=== PATIENT | male | born 1950 | race Caucasian/White ===

== ENCOUNTER 2018-11-06 12:58 | Observation (INO) ==
[2018-11-06 13:28] LABS: Basophils % 0.3 % (0.0-0.8); Eosinophils % 0.3 % (0.00-10.9); Hematocrit 45.2 VOL% (42.0-52.0); Hemoglobin 14.6 GM/DL (14.0-18.0); Immature Granulocytes % 0.3 %; Immature Granulocytes Absolute 0.03 #; Lymphocytes % 11.7 % (21.2-54.2); Mean Corpuscular HGB Conc 32.3 GM/DL (32-36); Mean Corpuscular Volume 95.6 FL (87-102); Monocytes % 6.2 % (1.7-12.7); Neutrophils % 81.2 % (38.7-73.9); Platelet Count 165 T/CUMM (130-400); Red Blood Count 4.73 MC/CUMM (3.8-5.5); Red Cell Distribution Width 12.8 % (9.3-17.3); White Blood Count 8.7 T/CUMM (4-12)
[2018-11-06 13:52] LABS: Albumin 3.9 G/DL (3.4-5.0); Bilirubin,Total 0.4 MG/DL (0.2-1.0); Calcium 9.1 MG/DL (8.5-10.1); Osmolality,Calculated 273.7 MOS/KG (273-304); Total Protein 7.7 G/DL (6.4-8.3)
[2018-11-06] MEDS ORDERED: HYDROmorphone 2 MG/1 ML VIAL IV PRN (16:08)
[2018-11-06] MEDS ORDERED: ONDANSETRON 4 MG/2 ML VIAL IV PRN (16:08)
[2018-11-06] MEDS ORDERED: hydrALAZINE 20 MG/1 ML VIAL IV PRN (16:14)
[2018-11-06] MEDS: LISINOPRIL 20 MG TABLET PO SCH (17:34)
[2018-11-06] MEDS: DEXTROSE 5% NACL 0.45% 1,000 ML IV SCH (17:35)
[2018-11-06] MEDS: PANTOPRAZOLE 40 MG VIAL IV SCH (17:36)
[2018-11-06] MEDS: cefOXitin 2,000 MG in SYRINGE 1 EACH IV SCH ×2 (18:50→23:31)
[2018-11-07] MEDS: DEXTROSE 5% NACL 0.45% 1,000 ML IV SCH ×2 (03:17→09:26)
[2018-11-07] MEDS: cefOXitin 2,000 MG in SYRINGE 1 EACH IV SCH ×2 (04:57→12:00)
[2018-11-07] MEDS ORDERED: INDOCYANINE GREEN 25 MG VIAL IV ONE (06:37)
[2018-11-07] MEDS ORDERED: TISSUE ADHESIVE 1 EACH APPLICATOR TOP ONE (06:37)
[2018-11-07] MEDS ORDERED: cefOXitin 2,000 MG in SYRINGE 1 EACH IV ONE (06:40)
[2018-11-07] MEDS ORDERED: ENOXAPARIN 40 MG/0.4 ML SYRINGE SUBCUT SCH (07:00)
[2018-11-07] MEDS ORDERED: PROPOFOL 200 MG/20 ML VIAL IV ONE (08:39)
[2018-11-07] MEDS ORDERED: ACETAMINOPHEN 1,000 MG/100 ML VIAL IV ONE (08:40)
[2018-11-07] MEDS ORDERED: fentaNYL 100 MCG/2 ML VIAL ONE (08:40)
[2018-11-07] MEDS ORDERED: KETOROLAC 30 MG/1 ML VIAL ONE (08:40)
[2018-11-07] MEDS ORDERED: ONDANSETRON 4 MG/2 ML VIAL ONE (08:40)
[2018-11-07] MEDS ORDERED: MIDAZOLAM 2 MG/2 ML VIAL ONE (08:40)
[2018-11-07] MEDS ORDERED: SEVOFLURANE 1 UNIT/15 MINUTE INH ONE (08:40)
[2018-11-07] MEDS ORDERED: GLYCOPYRROLATE 0.4 MG/2 ML VIAL ONE (08:40)
[2018-11-07] MEDS ORDERED: PHENYLEPHRINE 1 MG/10 ML SYRINGE IV ONE (08:41)
[2018-11-07] MEDS ORDERED: ROCURONIUM 100 MG/10 ML VIAL IV ONE (08:41)
[2018-11-07] MEDS ORDERED: NEOSTIGMINE 10 MG/10 ML VIAL ONE (08:41)
[2018-11-07] MEDS ORDERED: LACTATED RINGERS 1,000 ML IV ONE (08:41)
[2018-11-07] MEDS: PANTOPRAZOLE 40 MG VIAL IV SCH (09:20)
[2018-11-07] MEDS: LISINOPRIL 20 MG TABLET PO SCH (09:21)
[2018-11-07 09:22] VITALS: BP 118/82
== END 2018-11-07 12:55 | disposition home or self-care (01) ==
LOC: N.ED 12:58 → N.EDINP 16:08 → INTOOBSV 16:08 → N.5E 16:54 → N.3E 21:39
PROVIDERS: ADMIT Surgery; ATTEND Surgery